=== PATIENT | female | born 1995 | race Caucasian/White ===

== ENCOUNTER 2018-04-11 17:32 | Emergency (ER) | payer BC ==
[2018-04-11] MEDS: RABIES VACCINE HUMAN 2.5 INTERNATIONAL UNITS/ML VIAL (90675) IM (19:04)
[2018-04-11] MEDS: RABIES IMMUNE GLOBULIN 1500 INTERNATIONAL UNITS/10 ML VIAL (90375) IM (19:18)
== END 2018-04-11 19:44 | disposition home or self-care (01) ==
LOC: M ED 17:32
DX: Z20.3 Contact with and (suspected) exposure to rabies (principal); Z23 Encounter for immunization; Z79.3 Long term (current) use of hormonal contraceptives
CPT/HCPCS: 90675

== ENCOUNTER 2018-04-14 09:05 | Emergency (ER) | payer BC ==
[2018-04-14] MEDS: RABIES VACCINE HUMAN 2.5 INTERNATIONAL UNITS/ML VIAL (90675) IM (09:28)
== END 2018-04-14 09:46 | disposition home or self-care (01) ==
LOC: M ED 09:05
DX: Z23 Encounter for immunization (principal); Z20.3 Contact with and (suspected) exposure to rabies; Z79.3 Long term (current) use of hormonal contraceptives
CPT/HCPCS: 90675

== ENCOUNTER 2018-04-18 12:28 | Emergency (ER) | payer BC ==
[2018-04-18] MEDS: RABIES VACCINE HUMAN 2.5 INTERNATIONAL UNITS/ML VIAL (90675) IM (14:21)
== END 2018-04-18 14:45 | disposition home or self-care (01) ==
LOC: M ED 12:28
DX: Z20.3 Contact with and (suspected) exposure to rabies (principal)
CPT/HCPCS: 90471

== ENCOUNTER 2018-04-25 07:23 | Emergency (ER) | payer BC, OTHER ==
[2018-04-25] MEDS: RABIES VACCINE HUMAN 2.5 INTERNATIONAL UNITS/ML VIAL (90675) IM (07:45)
== END 2018-04-25 08:11 | disposition home or self-care (01) ==
LOC: M ED 07:23
DX: Z23 Encounter for immunization (principal); Z20.3 Contact with and (suspected) exposure to rabies; Z79.3 Long term (current) use of hormonal contraceptives
CPT/HCPCS: 90675

== ENCOUNTER → 2019-12-05 | Outpatient (REF) | payer BC, OTHER ==
[~2019-12-05] MED LIST: LOW-1TAB2 PO
== END ==
LOC: M SFHCWAGY 16:58
PROVIDERS: ATTEND Obstetrics & Gynecology
DX: Z12.4 Encounter for screening for malignant neoplasm of cervix (principal)

== ENCOUNTER → 2020-09-20 | Outpatient (CLI) | payer SELFPAY | LOC: M LABSMTC 12:29 | PROVIDERS: ATTEND Pediatrics | DX: Z20.828 Contact with and (suspected) exposure to other viral communicable diseases (principal) ==

== ENCOUNTER → 2020-11-02 | Outpatient (CLI) | payer SELFPAY | LOC: M LABSMTC 14:01 | PROVIDERS: ATTEND Pediatrics | DX: Z20.822 Contact with and (suspected) exposure to COVID-19 (principal) ==